=== PATIENT | male | born 1995 | race Native Hawaiian/Other Pacific Islander ===

== ENCOUNTER 2016-05-16 13:20 | Emergency (ER) | payer MEDICAID | END 2016-05-16 16:25 | disposition home or self-care (01) | DX: S93.492A Sprain of other ligament of left ankle, initial encounter (principal); X50.1XXA Overexertion from prolonged static or awkward postures, initial encounter; Y93.61 Activity, american tackle football ==

== ENCOUNTER 2016-08-01 14:32 | Emergency (ER) | payer OTHER, MEDICAID | END 2016-08-01 15:31 | disposition home or self-care (01) | DX: S30.0XXA Contusion of lower back and pelvis, initial encounter (principal); W01.198A Fall on same level from slipping, tripping and stumbling with subsequent striking against other object, initial encounter; Y92.511 Restaurant or cafe as the place of occurrence of the external cause; Y99.0 Civilian activity done for income or pay | CPT/HCPCS: 1040M; 99283 ==

== ENCOUNTER 2016-11-13 20:19 | Emergency (ER) | payer MEDICAID ==
[2016-11-13 22:34] LABS: BILIRUBIN,URINE NEGATIVE (NEGATIVE)
[2016-11-13 22:36] LABS: UA CHARGE (STRIP ONLY) YES; UR CULTURE IF IND NOT INDICATED
[2016-11-13] MEDS ORDERED: ACETAMINOPHEN 500 MG TABLET PO STA (22:42)
[2016-11-13] MEDS ORDERED: CYCLOBENZAPRINE 10 MG TABLET PO STA (22:42)
--- NOTE | 2016-11-13 22:43 | ED Physician Documentation ---
History of Present Illness - Stated complaint Stated Complaint: DIZZINESS - Chief complaint Chief Complaint: General - History obtained from History obtained from: Patient, Family - History of Present Illness Timing: How many weeks ago (1) - Additonal information Additional information: Patient is a 21 year old male with no significant past medical history who is presenting to the emergency department for nausea, and vomiting after exercising. Patient states that for the last week he has had some intermittent neck pain but has been practicing. tonight after practicing patient states that he felt real dizzy, and had an episode of emesis. Patient states that he felt like he was going to pass out but never did. Upon initial evaluation in the emergency department patient was feeling better but just had some right sided paraspinal neck tenderness. Review of Systems Constitutional: denies: Fever, Chills Eyes: denies: Loss of vision, Photophobia, Discharge, Irritation Ears: denies: Ear pain, Drainage/discharge, Foreign body Nose: denies: Rhinorrhea / runny nose, Congestion Throat: denies: Dental pain / toothache, Sore throat Cardiac: denies: Chest pain / pressure, Palpitations Respiratory: denies: Cough, Wheezing GI: reports: Nausea, Vomiting. denies: Constipation, Diarrhea : denies: Dysuria, Frequency, Incontinent Musculoskeletal: reports: Neck pain. denies: Back pain, Extremity pain, Joint pain Neurologic: reports: Near syncope. denies: Syncope, Altered mental status, Head injury, LOC Immunocompromised: denies: Immunocompromised PD PAST MEDICAL HISTORY - Past Medical History Past Medical History: No Neuro: None - Past Surgical History Past Surgical History: Yes HEENT: Tonsil/Adenoidectomy - Present Medications Home Medications: Ambulatory Orders Medication Instructions Recorded Confirmed Cyclobenzaprine [Flexeril] 10 mg PO TID PRN #20 tablet 08/01/16 11/13/16 Cyclobenzaprine [Flexeril] 10 mg PO TID PRN #10 tablet 11/13/16 Ibuprofen [Advil] 1,200 mg PO DAILY 11/13/16 11/13/16 - Allergies Allergies/Adverse Reactions: Allergies Allergy/AdvReac Type Severity Reaction Status Date / Time No Known Drug Allergies Allergy Verified 11/13/16 20:38 - Social History Does the pt smoke?: No Smoking Status: Never smoker Does the pt drink ETOH?: No Does the pt have substance abuse?: No - Immunizations Immunizations are current?: No Immunizations: TDAP >10years/unknown - POLST Patient has POLST: No PD ED PE NORMAL - Vitals Vital signs reviewed: Yes - General General: Alert and oriented X 3, No acute distress - HEENT HEENT: Atraumatic, PERRL - Neck Neck: Supple, no meningeal sign - Cardiac Cardiac: RRR, No murmur - Respiratory Respiratory: No respiratory distress - Abdomen Abdomen: Soft, Non tender, Non distended - Derm Derm: Normal color, Warm and dry, No rash - Extremities Extremities: No deformity - Neuro Neuro: Alert and oriented X 3, No motor deficit, No sensory deficit, Normal speech - Psych Psych: Normal mood, Normal affect PD ED PE EXPANDED - Neck Neck: Soft tissue TTP (paraspinal tenderness and hypertonicity on the right) Results - Vitals Vitals: Vital Signs - 24 hr 11/13/16 20:33 Temperature 36.7 C Heart Rate 81 Respiratory 17 Rate Blood Pressure 133/86 H O2 Saturation 100 Oxygen O2 Source Room air - EKG (time done) 2236 Rate: Rate (enter#) (77) [place]: Normal Intervals: Normal [place] QRS: Normal Ischemia: ST elevation c/w repol Compare to prior EKG: Old EKG unavailable Computer interpretation: Agree with computer - Labs Labs: Laboratory Tests 11/13/16 22:07 Urine Color YELLOW Urine Clarity CLEAR Urine pH 6.0 Ur Specific [place] 1.025 Urine Protein NEGATIVE Urine Glucose (UA) NEGATIVE Urine Ketones NEGATIVE Urine Occult Blood NEGATIVE Urine Nitrite NEGATIVE Urine Bilirubin NEGATIVE Urine Urobilinogen 0.2 (NORMAL) Ur Leukocyte Esterase NEGATIVE Ur Microscopic Review NOT INDICATED Urine Culture Comments NOT INDICATED PD MEDICAL DECISION MAKING - ED course Complexity details: reviewed old records, reviewed results, re-evaluated patient , considered differential, d/w patient, d/w family ED course: Patient was seen and examined at bedside. Patient was well appearing and vital signs were within normal limits. ekg was performed and showed michael but no other abnormalities. there was no sign of brugada or wellens. Patient was treated with flexeril for his neck and told to avoid nsaids since he had been taking 1200mg at a time. Patient required no imaging at this time and was stable for discharge with outpatient follow up. Departure - Departure Disposition: 01 Home, Self Care Clinical Impression: Cervical muscle strain Condition: Good Instructions: ED Sprain Strain Neck Follow-Up: primary,care provider [Other] - As Needed Prescriptions: Cyclobenzaprine [Flexeril] 10 mg PO TID PRN #10 tablet PRN Reason: Spasms Comments: Your diagnostics today were within normal limits. your symptoms today were likely due to exertion. You should make sure you stay well hydrated and work your way back into exercising. You should follow up with your pmd if your symptoms persist. You may return to the emergency department at any time for new, worsening or uncontrollable symptoms. Forms: Activity restrictions
[2016-11-13] MEDS ORDERED: ACETAMINOPHEN 500 MG TABLET PO ONE (22:51)
[2016-11-13] MEDS ORDERED: CYCLOBENZAPRINE 10 MG TABLET PO ONE (22:51)
[2016-11-13 23:11] VITALS: BP 125/85
== END 2016-11-13 23:10 | disposition home or self-care (01) ==
LOC: ED 20:19
DX: S16.1XXA Strain of muscle, fascia and tendon at neck level, initial encounter (principal); X58.XXXA Exposure to other specified factors, initial encounter; Y93.75 Activity, martial arts
CPT/HCPCS: 81003; 93005; 99283; 99284; A9270; 81001; 87086

== ENCOUNTER 2017-09-22 06:44 | Emergency (ER) | payer MEDICAID ==
[2017-09-22 06:55] VITALS: BP 154/95
[2017-09-22] MEDS ORDERED: LIDOCAINE PATCH 5% TOP PRN (07:22)
[2017-09-22] MEDS ORDERED: oxyCOD/ACETAMIN 5 MG/325 MG TABLET PO STA (07:22)
[2017-09-22] MEDS ORDERED: CYCLOBENZAPRINE 10 MG TABLET PO STA (07:22)
--- NOTE | 2017-09-22 07:34 | ED Physician Documentation ---
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 this AM had left low back pain and tightness no rad down legs little numbness to L buttock no weakness no urinary sx no saddle anesthesia no abd pain no fever no recent surgery dental work IV meds/drugs hz similar took ibuprofen [employer] presently 09/16 Review of Systems Constitutional: denies: Fever Cardiac: denies: Chest pain / pressure Respiratory: denies: Dyspnea GI: denies: Abdominal Pain : denies: Dysuria, Incontinent, Hematuria Musculoskeletal: reports: Back pain Endocrine: denies: Easy bruising / bleeding Immunocompromised: denies: Immunocompromised PD PAST MEDICAL HISTORY - Past Medical History Past Medical History: No Cardiovascular: None Respiratory: None Neuro: None Endocrine/Autoimmune: None GI: None : None HEENT: None Psych: None Musculoskeletal: None Derm: None - Past Surgical History Past Surgical History: Yes HEENT: Tonsil/Adenoidectomy - Present Medications Home Medications: Ambulatory Orders Medication Instructions Recorded Confirmed Cyclobenzaprine [Flexeril] 10 mg PO TID PRN #20 tablet 08/01/16 11/13/16 Cyclobenzaprine [Flexeril] 10 mg PO TID PRN #10 tablet 11/13/16 Ibuprofen [Advil] 1,200 mg PO DAILY 11/13/16 11/13/16 Cyclobenzaprine [Flexeril] 10 mg PO TID PRN #20 tablet 09/22/17 Lidocaine Patch 5% [Lidoderm Patch] 1 each TOP DAILY PRN #10 patch 09/22/17 - Allergies Allergies/Adverse Reactions: Allergies Allergy/AdvReac Type Severity Reaction Status Date / Time No Known Drug Allergies Allergy Verified 09/22/17 06:57 - Social History Does the pt smoke?: No Smoking Status: Never smoker Does the pt drink ETOH?: No Does the pt have substance abuse?: No - Immunizations Immunizations are current?: No Immunizations: TDAP >10years/unknown - POLST Patient has POLST: No PD ED PE NORMAL - Vitals Vital signs reviewed: Yes - Cardiac Cardiac: RRR - Respiratory Respiratory: No respiratory distress, Clear bilaterally - Abdomen Abdomen: Soft, Non tender, Other (no pulsatile mass) - Back Back: No spinal TTP (no focal bony TTP redness warmth, left lumbar mm spasm and tenderness) - Neuro Neuro: Alert and oriented X 3, No motor deficit, No sensory deficit, Other (hip flexion knee ext foot dorsi plantar and great toe ext 5/5, no clonus, neg SLR, denies saddle anesthesia) Results - Vitals Vitals: Vital Signs - 24 hr 09/22/17 06:52 Temperature 36.7 C Heart Rate 93 Respiratory 17 Rate Blood Pressure 154/95 H O2 Saturation 98 Oxygen O2 Source Room air PD MEDICAL DECISION MAKING - Sepsis Event Vital Signs: Vital Signs - 24 hr 09/22/17 06:52 Temperature 36.7 C Heart Rate 93 Respiratory 17 Rate Blood Pressure 154/95 H O2 Saturation 98 Oxygen O2 Source Room air Departure - Departure Disposition: 01 Home, Self Care Clinical Impression: Lumbar strain Qualifiers: Encounter type: initial encounter Qualified Code(s): S39.012A - Strain of muscle, fascia and tendon of lower back, initial encounter Condition: Good Instructions: ED Low Back Pain Injury Prescriptions: Cyclobenzaprine [Flexeril] 10 mg PO TID PRN #20 tablet PRN Reason: Spasms Lidocaine Patch 5% [Lidoderm Patch] 1 each TOP DAILY PRN #10 patch PRN Reason: Pain Comments: Continue to take the ibuprofen Add the lidocaine patches (may wear up to 12 hr a day) and the muscle relaxants (no driving for at least 8 h) Alternating heat and ice. Limit lifting for a week. Follow up PMD if not better Return if worse Also please get your blood pressure rechecked - it was high today Forms: Activity restrictions
== END 2017-09-22 08:00 | disposition home or self-care (01) ==
LOC: ED 06:44
DX: S39.012A Strain of muscle, fascia and tendon of lower back, initial encounter (principal); X50.0XXA Overexertion from strenuous movement or load, initial encounter; Y99.0 Civilian activity done for income or pay
CPT/HCPCS: 99283; A9270

== ENCOUNTER 2018-03-02 13:32 | Emergency (ER) | payer MEDICAID ==
[2018-03-02] MEDS ORDERED: CYCLOBENZAPRINE 10 MG TABLET PO STA (16:23)
--- NOTE | 2018-03-02 16:25 | ED Physician Documentation ---
History of Present Illness - Stated complaint Stated Complaint: PX LT SIDE LEG/HIP - Chief complaint Chief Complaint: General - History obtained from History obtained from: Patient - History of Present Illness Timing: Other (He thinks he pulled or strained his hip about 3 days ago. He does not remember doing anything specific. He says he gets groin pain when he internally or externally rotates the hip on the left. There is no associated fever or back pain. Pain does radiate down the leg and he has difficulty walking because of it. He is never had this before.) Review of Systems Constitutional: denies: Fever, Chills GI: reports: Reviewed and negative : reports: Reviewed and negative PD PAST MEDICAL HISTORY - Past Medical History Cardiovascular: None Respiratory: None Neuro: None Endocrine/Autoimmune: None GI: None : None HEENT: None Psych: None Musculoskeletal: None Derm: None - Past Surgical History Past Surgical History: Yes HEENT: Tonsil/Adenoidectomy - Present Medications Home Medications: Ambulatory Orders Medication Instructions Recorded Confirmed Ibuprofen [Advil] 1,200 mg PO DAILY 11/13/16 11/13/16 Cyclobenzaprine [Flexeril] 10 mg PO TID PRN #20 tablet 03/02/18 Loratadine [Claritin] 10 mg PO 03/02/18 03/02/18 - Allergies Allergies/Adverse Reactions: Allergies Allergy/AdvReac Type Severity Reaction Status Date / Time No Known Drug Allergies Allergy Verified 03/02/18 13:39 - Social History Does the pt smoke?: No Smoking Status: Never smoker Does the pt drink ETOH?: No Does the pt have substance abuse?: No - Immunizations Immunizations are current?: No Immunizations: TDAP >10years/unknown - POLST Patient has POLST: No PD ED PE NORMAL - Vitals Vital signs reviewed: Yes - General General: Alert and oriented X 3, No acute distress - Abdomen Abdomen: Normal bowel sounds, Soft, Non tender - Extremities Extremities: Other (Left hip is tender laterally and anteriorly. He has some pain with internal/external rotation but not excruciating. The patient has equal and normal Achilles and patellar reflexes bilaterally. Normal sensation in all areas of the legs. Patient denies saddle anesthesia. Normal strength in flexion-extension at the ankles, knees, and flexion of the hips.) - Neuro Neuro: Alert and oriented X 3, Normal speech Results - Vitals Vitals: Vital Signs - 24 hr 03/02/18 13:37 Temperature 36.9 C Heart Rate 95 Respiratory 20 Rate Blood Pressure 145/83 H O2 Saturation 98 Oxygen O2 Source Room air - Rads (name of study) 2v L hip Radiology: EMP read contemporaneously (Left hip strain) Departure - Departure Disposition: 01 Home, Self Care Clinical Impression: Strain of left hip Qualifiers: Encounter type: initial encounter Qualified Code(s): S76.012A - Strain of muscle, fascia and tendon of left hip, initial encounter Condition: Good Record reviewed to determine appropriate education?: Yes Instructions: ED Sprain Hip Prescriptions: Cyclobenzaprine [Flexeril] 10 mg PO TID PRN #20 tablet PRN Reason: Spasms Comments: Call your doctor to arrange a follow-up appointment, make the next available appointment. In the interim, return anytime if worse or if new symptoms develop. Your blood pressure was elevated today on check into the emergency department. This does not mean that you have hypertension, it is a common phenomenon to come to the emergency department and have elevated blood pressure. I recommend that you see your primary care physician within the week to have it rechecked when you are feeling better. Forms: Activity restrictions
--- NOTE | 2018-03-02 17:08 | XRAY Report ---
Reason: hip ionj Procedure Date: 03/02/2018 Accession Number: [id number] / [id number] Procedure: XR - Hip w/Pelvis 2-3V LT CPT Code: FULL RESULT: EXAM: LEFT HIP AND PELVIS RADIOGRAPHY EXAM DATE: 03/02/2018 04:45 PM. HISTORY: Hip pain when standing. COMPARISONS: None. TECHNIQUE: 1 view of the pelvis and 1 view of the hip. FINDINGS: Bones: Normal. No fracture or bone lesion. Joints: The bilateral hip, pubis symphysis, and sacroiliac joints are preserved. Soft Tissues: Normal. No soft tissue swelling. IMPRESSION: No radiographic bony abnormality. [facility]
[2018-03-02 18:01] VITALS: BP 138/80
== END 2018-03-02 17:59 | disposition home or self-care (01) ==
LOC: ED 13:32
DX: S76.012A Strain of muscle, fascia and tendon of left hip, initial encounter (principal); X58.XXXA Exposure to other specified factors, initial encounter
CPT/HCPCS: 73502; 99283; A9270

== ENCOUNTER 2018-09-16 07:28 | Outpatient (CLI) | payer MEDICAID | END 2018-09-16 23:59 | disposition home or self-care (01) | LOC: RT.N 07:28 | PROVIDERS: ATTEND Physician Assistant Medical | DX: R07.89 Other chest pain (principal) | CPT/HCPCS: 93005 ==

== ENCOUNTER 2019-12-12 14:23 | Outpatient (CLI) | payer MEDICAID, OTHER ==
[2019-12-12 18:22] LABS: BASOPHILS # (AUTO) 0.1 10^3/uL (0.0-0.1); BASOPHILS % (AUTO) 1.2 %; EOSINOPHILS # (AUTO) 0.2 10^3/uL (0.0-0.7); EOSINOPHILS % (AUTO) 2.2 %; HGB - HEMOGLOBIN 14.2 g/dL (14.0-18.0); LYMPHOCYTES % (AUTO) 29.8 %; MEAN CORPUSCULAR HEMOGLOBIN 27.7 pg (27.0-31.0); MEAN CORPUSCULAR HGB CONC 32.6 g/dL (32.0-36.0); MEAN CORPUSCULAR VOLUME 84.8 fL (80.0-94.0); MEAN PLATELET VOLUME 11.9 fL (7.4-11.4); MONOCYTES # (AUTO) 0.6 10^3/uL (0.0-1.0); MONOCYTES % (AUTO) 9.4 %; NEUTROPHILS # (AUTO) 3.8 10^3/uL (1.5-6.6); PLT - PLATELET COUNT 236 10^3/uL (130-450); RED BLOOD COUNT 5.13 10^6/uL (4.70-6.10); RED CELL DISTRIBUTION WIDTH 12.8 % (12.0-15.0); WHITE BLOOD COUNT 6.7 x10^3/uL (4.8-10.8)
[2019-12-12 18:53] LABS: ALBUMIN 4.7 g/dL (3.2-5.5); ALBUMIN/GLOBULIN RATIO 1.3 (1.0-2.2); ALKALINE PHOSPHATASE 63 IU/L (42-121); ALT ALANINE AMINOTRANSFERASE 46 IU/L (10-60); AST ASPARTATE AMINOTRANSFERASE 38 IU/L (10-42); BILIRUBIN,TOTAL 0.9 mg/dL (0.2-1.0); BUN - BLOOD UREA NITROGEN 12 mg/dL (6-20); CALCIUM 9.3 mg/dL (8.5-10.3); CARBON DIOXIDE - CO2 24 mmol/L (21-32); CHLORIDE 104 mmol/L (101-111); GLUCOSE 82 mg/dL (70-100); SODIUM 139 mmol/L (135-145); TOTAL PROTEIN 8.4 g/dL (6.7-8.2); VALPROIC ACID (DEPAKOTE) 78.1 ug/mL
== END 2019-12-12 23:59 | disposition home or self-care (01) ==
LOC: LAB.WCP 14:23
PROVIDERS: ATTEND Psychiatry & Neurology Psychiatry
DX: Z51.81 Encounter for therapeutic drug level monitoring (principal); Z79.899 Other long term (current) drug therapy
CPT/HCPCS: 36415; 80053; 80164; 85025